=== PATIENT | male | born 1955 | race African-American/Black ===

== ENCOUNTER 2021-02-12 11:17 | Emergency (ER) | payer BC, OTHER ==
[~2021-02-12] VITALS: Ht 182.9 cm; Wt 83.9 kg
[~2021-02-12 11:17] MED LIST: ATEN-41 PO; VERA240C2 PO
[2021-02-12 11:41] VITALS: BP_SYST 138
--- NOTE | 2021-02-12 18:36 | NUR ---
Patient to ER bed 7 to gown for evaluation. Side rails up. Report given to Shahram CHIANG.
--- NOTE | 2021-02-12 18:40 | NUR ---
PT RETURNED PLACED IN ROOM 7 US OF LOWER EXT WAITING
--- NOTE | 2021-02-12 19:10 | NUR ---
report to august rn
--- NOTE | 2021-02-12 19:15 | NUR ---
Dr. Alvarez at bedside for explain results and treatment plans.
[2021-02-12 19:18] VITALS: BP_SYST 134
--- NOTE | 2021-02-12 19:18 | NUR ---
Patient given written and verbal discharge instructions and verbalizes understanding. ER MD discussed with patient the results and treatment provided. Patient in stable condition. ID arm band removed. No Rx given. Patient educated on pain management and to follow up with PMD. Pain Scale 0/10. Opportunity for questions provided and answered.
== END 2021-02-12 19:18 | disposition home or self-care (01) ==
LOC: SED 11:17
DX: R25.2 Cramp and spasm (principal); I10 Essential (primary) hypertension; E11.9 Type 2 diabetes mellitus without complications; E78.00 Pure hypercholesterolemia, unspecified; Z79.899 Other long term (current) drug therapy
CPT/HCPCS: 93923; 93970; 99285

== ENCOUNTER 2021-09-04 23:53 | Emergency (ER) | payer BC ==
[~2021-09-04] VITALS: Ht 182.9 cm; Wt 90.7 kg
[2021-09-05 00:36] VITALS: BP_SYST 151
[2021-09-05] MEDS ORDERED: METO-442 PO (00:56)
[2021-09-05] MEDS ORDERED: NOR10 PO (00:57)
[2021-09-05] MEDS ORDERED: LOSA50TA3 PO (00:58)
[2021-09-05] MEDS ORDERED: TAMS0.4C96 PO (00:59)
[2021-09-05] MEDS ORDERED: cloNIDine HCL 0.1 MG TABLET PO ONE ×2 (01:00→02:15)
[2021-09-05 01:49] LABS: BILIRUBIN,URINE NEGATIVE (NEGATIVE); BLOOD, URINE NEGATIVE (NEGATIVE); CLARITY/URINE CLEAR (CLEAR); COLOR,URINE YELLOW (YELLOW); GLUCOSE,URINE NEGATIVE (NEGATIVE); KETONES,URINE NEGATIVE (NEGATIVE); LEUKOCYTE ESTERASE ,URINE NEGATIVE (NEGATIVE); NITRITE, URINE NEGATIVE (NEGATIVE); PROTEIN URINE NEGATIVE (NEGATIVE); UROBILINOGEN,URINE 0.2 (0.2-1.0)
[2021-09-05 03:35] VITALS: BP_SYST 120
== END 2021-09-05 03:35 | disposition home or self-care (01) ==
LOC: SED 23:53
DX: I10 Essential (primary) hypertension (principal); E11.9 Type 2 diabetes mellitus without complications; E78.00 Pure hypercholesterolemia, unspecified
CPT/HCPCS: 81003; 99283; 99285

== ENCOUNTER 2022-02-17 08:51 | Observation (INO) | payer BC, OTHER ==
[~2022-02-17] VITALS: Ht 182.9 cm; Wt 78.0 kg
[~2022-02-17 08:51] MED LIST changes: -ATEN-41 PO; +LOSA50TA3 PO; +METO-442 PO; +NOR10 PO; +TAMS0.4C96 PO; -VERA240C2 PO
--- NOTE | 2022-02-17 09:00 | NUR ---
Placed in room 03 . Placed on bacteriologist industrial, blood pressure machine and pulse oximeter. To gown for exam. Side rails up. Report given to АНДРЕЙ ESCOBAR.
[2022-02-17 09:03] VITALS: BP_SYST 181
--- NOTE | 2022-02-17 09:20 | NUR ---
JENNY Chacon at bedside examining patient.
[2022-02-17 09:34] LABS: BASOPHILS % (AUTO) 0.3 % (0.0-2.0); EOSINOPHILS % (AUTO) 0.2 % (0.0-4.0); HEMOGLOBIN 13.6 g/dL (14.0-18.0); LYMPHOCYTES # (AUTO) 0.6 K/uL (1.0-5.5); MEAN CORPUSCULAR HEMOGLOBIN 26 pg (27-31); MEAN CORPUSCULAR HGB CONC 33 % (32-36); MEAN CORPUSCULAR VOLUME 78 fL (79.0-98.0); MONOCYTES # (AUTO) 0.5 K/uL (0.0-1.0); MONOCYTES % (AUTO) 7.2 % (1.7-9.3); NEUTROPHILS # (AUTO) 5.8 K/uL (1.8-7.7); NEUTROPHILS % (AUTO) 83.3 % (40.0-70.0); PLATELET COUNT (AUTO) 302 K/uL (130-430); RED BLOOD CELL COUNT(AUTO) 5.24 MIL/uL (4.2-6.2)
--- NOTE | 2022-02-17 09:35 | NUR ---
PT LYING ON BED WITH CO LEFT EYE PAIN WITH STEPHENSON. BP HAS BEEN HIGH SINCE LAST NIGHT. NO FURHTER CO. PT WAS ON MONITOR.
[2022-02-17 09:54] LABS: ANION GAP 2 (5-15); CALCIUM 9.2 mg/dL (8.4-11.0); CHLORIDE 100 mmol/L (98-107); CREATININE 1.01 mg/dL (0.55-1.30); GLUCOSE 157 mg/dL (70-99); UREA NITROGEN, BLOOD 10 mg/dL (8-21)
[2022-02-17 10:03] LABS: ALANINE AMINOTRANSFERASE 22 U/L (12-78); ALBUMIN 3.5 g/dL (3.4-4.8); ASPARTATE AMINOTRANSFERASE 37 U/L (10-37); TOTAL BILIRUBIN 0.4 mg/dL (0.0-1.0)
[2022-02-17 10:14] LABS: GFR AFRICAN AMERICAN 95 mL/min (>90)
--- NOTE | 2022-02-17 10:31 | NUR ---
Admit bed requested Patient will be admitted to care of . Admitted to [facility] OBS unit. Diagnosis ELEVATED TROP. Inpatient: NO Observation (Yes Orientation concerns or request close to nursing station (No) Covid Status:Neg On vent or bipap: No. Isolation requirements: STANDARD Needs a sitter: NO. From Home (Yes) Requires Dialysis (No) Med Rec Completed (Yes)
[2022-02-17] MEDS ORDERED: [UNRECOGNIZED DRUG - CODE] PO (11:16)
[2022-02-17] MEDS ORDERED: ZOLP1.754 SL (11:16)
--- NOTE | 2022-02-17 12:19 | NUR ---
PT GOT ROOM 110B. PT WAS SENT TO [facility] WITH DIMITRI.
--- NOTE | 2022-02-17 12:19 | NUR ---
Report received from АНДРЕЙ Mc for continuity of care. Patient respiration even and unlabored. No shortness of breath. No c/o pain. Patient explained he came to hospital for elevated BP. Patient denies losing consciousness when he fell at home yesterday. Patient is responsive to verbal commands. IV noted. Patient belongings listed and at bedside. Patient's at bedside to see her. Will continue to monitor. [facility] notified regarding elevated troponin and blood pressure. Will continue to monitor. Call light within reach.
--- NOTE | 2022-02-17 12:26 | NUR ---
Note undone in EDM - 02/17/22 at 1230 by [email or web address]AY[address] DR[address] SAGASTUME RE-ASSESSED BEDSIDE THEN DECIDED TO D/C PT HOME. Patient given written and verbal discharge instructions and verbalizes understanding. ER MD discussed with patient the results and treatment provided. Patient in stable condition. ID arm band removed. Rx of EPINEPHRINE AND PREDNISONE given. Patient educated on pain management and to follow up with PMD. Pain Scale 1. Opportunity for questions provided and answered. Medication side effect fact sheet provided.
--- NOTE | 2022-02-17 12:36 | NUR ---
CONSULTATION PAGED REASON FOR CONSULTATION:ELEVATED TROPONIN WAS CONSULT CALLED?Y PERSON WHO WAS NOTIFIED:TEXT MESSAGED CONSULTING PHYSICIAN:BRUCE PEMBERTON PARTNER [employer]ATION [employer]NER SPECIALTY:CARDIO PARTNER INTEGRATION PLANNER PHONE NUMBER:[phone] REQUESTING PHYSICIAN:ROSELYN PEMBERTON Addendum: 02/17/22 at 1257 by Gerda Montgomery MT/ [facility] [employer] MANAGER FOR DR CISNEROS
[2022-02-17 12:41] VITALS: BP_SYST 152
[2022-02-17 12:42] VITALS: BP_SYST 152
--- NOTE | 2022-02-17 13:54 | NUR ---
Reported to Dr. Warren lab results and reonciled meds. New orders noted and carried out.
[2022-02-17] MEDS ORDERED: TAMSULOSIN HCL 0.4 MG CAP PO ONE (14:00)
[2022-02-17] MEDS ORDERED: amLODIPine BESYLATE 10 MG TABLET PO ONE (14:00)
[2022-02-17] MEDS ORDERED: METOPROLOL TARTRATE 50 MG TABLET PO ONE ×2 (14:00→14:15)
[2022-02-17] MEDS ORDERED: POTASSIUM CHLORIDE 20 MEQ TAB.PRT.SR PO ONE (14:00)
[2022-02-17] MEDS ORDERED: LOSARTAN POTASSIUM 50 MG TABLET (COZAAR) PO ONE ×2 (14:00→15:15)
--- NOTE | 2022-02-17 14:10 | NUR ---
Echo in progress.
[2022-02-17] MEDS ORDERED: HYDROCHLOROTHIAZIDE 12.5 MG CAPSULE (HCTZ) PO ONE (15:00)
[2022-02-17] MEDS ORDERED: VALSARTAN 160 MG TABLET (DIOVAN) PO SCH (15:00)
[2022-02-17 16:00] VITALS: BP_SYST 148
[2022-02-17 19:00] VITALS: BP_SYST 149
--- NOTE | 2022-02-17 19:15 | NUR ---
change of shift.pt.presents quiescent affect;calm,resting.no c/o pain;chest/nor chest discomfort.respiratory status stable @roomn air.pt.capable to ambulate;un-assisted,reposition self.pt.presents iv access aloatio .lt fprarm.gene;tsus stale.calight/telepo w/i acces sof thpt./
--- NOTE | 2022-02-17 19:30 | NUR ---
Report given to land clearer RN for continuity of care. Patient stable condition. No distress noted.
[2022-02-17] MEDS ORDERED: HYDROcodone/ACETAMIN 10-325 MG TAB PO PRN (19:45)
[2022-02-17] MEDS ORDERED: HYDROcodone/ACETAMIN 5-325 MG TAB (NORCO/ VICODIN) PO PRN (19:45)
[2022-02-17] MEDS ORDERED: ACETAMINOPHEN 325 MG TABLET PO PRN (19:45)
[2022-02-17] MEDS ORDERED: NALOXONE HCL 0.4 MG/ML AMP (NARCAN) IVP PRN ×2 (19:45)
[2022-02-17] MEDS ORDERED: ONDANSETRON HCL 4 MG/2 ML VIAL IVP PRN (19:45)
[2022-02-17 20:00] VITALS: BP_SYST 149
--- NOTE | 2022-02-17 20:00 | NUR ---
pt.assessed.v/s assessed value wnl:note b/p status.b/p status conveyed to pt.pre pt.request.no c/o pain;chest/nor chest discomfort.pt.apprised that snacks/beverages are available w/in the shift.pt.posited requests snacks/beverages;provided. general status stable.respiratory status stable.call light/telephone w/in access of the pt.
[2022-02-17] MEDS ORDERED: METOPROLOL TARTRATE 50 MG TABLET PO SCH (21:00)
[2022-02-17] MEDS ORDERED: TAMSULOSIN HCL 0.4 MG CAP PO SCH (21:00)
[2022-02-17] MEDS ORDERED: ZOLPIDEM TARTRATE 5 MG TABLET PO SCH (21:00)
--- NOTE | 2022-02-17 21:00 | NUR ---
2100p medication administered;flomax.pt.capable to ingest the po medication w/out difficulty.no c/o pain,nausea. call light/telephone w/in access of the pt.
[2022-02-17] MEDS: NORMAL SALINE 5 ML DISP.SYRIN IVF SCH ×2 (21:43→21:44)
--- NOTE | 2022-02-17 22:00 | NUR ---
pt.assessed.pt.quiescent,resting.no c/o pain,nausea.no requests posited@this hour.call light/telephone w/in access of the pt.
[2022-02-18] VITALS: BP_SYST 133
--- NOTE | 2022-02-18 | NUR ---
pt.assessed.v/s assessed values wnl values conveyed to pt.troponin level decreased to 57:level conveyed to pt.no c/o pain, nausea.pt.requested ambien;5mg po administered.no requests posited@this hour.pt.capable to reposition self.call light/telephone w/in access of the pt.
--- NOTE | 2022-02-18 02:00 | NUR ---
pt.assessed.pt.quiescent;somnolent.per flacc pain mgx pt.absent facial grimaces/body posturing.pt.capable to reposition self. call light/telephone w/in access of the pt.
--- NOTE | 2022-02-18 04:00 | NUR ---
pt.assessed.pt.quiescent;resting.no c/o pain,nausea.no requests posited@this hour.pt.capable to reposition self. call light/telephone w/in access of the pt.
[2022-02-18] MEDS: NORMAL SALINE 5 ML DISP.SYRIN IVF SCH ×4 (05:04→11:09)
--- NOTE | 2022-02-18 06:07 | NUR ---
pt.assessed.pt.quiescent;somnolent.per flacc pain mgx pt.absent facial grimaces/body posturing.pt.capable to reposition/ self.call light/telephone w/in access of the pt.
[2022-02-18 07:15] LABS: CALCIUM 9.1 mg/dL (8.4-11.0); CREATININE 1.06 mg/dL (0.55-1.30); PHOSPHORUS 3.3 mg/dL (2.7-4.5)
[2022-02-18 07:55] LABS: BASOPHILS % (AUTO) 0.6 % (0.0-2.0); EOSINOPHILS # (AUTO) 0.1 K/uL (0.0-0.4); EOSINOPHILS % (AUTO) 1.2 % (0.0-4.0); HEMATOCRIT 41.9 % (36-54); HEMOGLOBIN 13.9 g/dL (14.0-18.0); LYMPHOCYTES # (AUTO) 1.2 K/uL (1.0-5.5); LYMPHOCYTES % (AUTO) 22.7 % (20.5-51.5); MEAN CORPUSCULAR HEMOGLOBIN 26 pg (27-31); MEAN CORPUSCULAR HGB CONC 33 % (32-36); MEAN CORPUSCULAR VOLUME 79 fL (79.0-98.0); MONOCYTES # (AUTO) 0.5 K/uL (0.0-1.0); MONOCYTES % (AUTO) 10.1 % (1.7-9.3); NEUTROPHILS # (AUTO) 3.4 K/uL (1.8-7.7); NEUTROPHILS % (AUTO) 65.4 % (40.0-70.0); PLATELET COUNT (AUTO) 318 K/uL (130-430); RED BLOOD CELL COUNT(AUTO) 5.33 MIL/uL (4.2-6.2); RED CELL DISTRIBUTION WIDTH 15.2 % (9.0-15.0); WHITE BLOOD COUNT (AUTO) 5.2 K/uL (4.8-10.8)
[2022-02-18 08:01] VITALS: BP_SYST 124
[2022-02-18] MEDS ORDERED: LOSARTAN POTASSIUM 50 MG TABLET (COZAAR) PO SCH ×2 (09:00)
[2022-02-18] MEDS ORDERED: TAMSULOSIN HCL 0.4 MG CAP PO SCH (09:00)
[2022-02-18] MEDS ORDERED: amLODIPine BESYLATE 10 MG TABLET PO SCH (09:00)
[2022-02-18] MEDS ORDERED: METOPROLOL TARTRATE 50 MG TABLET PO SCH (09:00)
[2022-02-18] MEDS ORDERED: HYDROCHLOROTHIAZIDE 12.5 MG CAPSULE (HCTZ) PO SCH (09:00)
--- NOTE | 2022-02-18 10:44 | NUR ---
Call placed to Dr. Mendy Warren regarding patient complaint of bilateral eye swelling "from fall" according to patient. Awaiting further direction/orders.
[2022-02-18] MEDS ORDERED: METOPROLOL SUCCINATE 50 MG TAB.SR.24H (TOPROL XL) PO ONE (11:30)
[2022-02-18] MEDS ORDERED: HYDR12.585 PO (11:42)
[2022-02-18] MEDS ORDERED: ZOLP5TAB2 PO (11:42)
[2022-02-18] MEDS ORDERED: LOSA50TA3 PO (11:42)
[2022-02-18] MEDS ORDERED: METO-542 PO (11:42)
[2022-02-18 11:45] VITALS: BP_SYST 123
[2022-02-18 12:00] VITALS: BP_SYST 135
[2022-02-18] MEDS ORDERED: METOPROLOL SUCCINATE 50 MG TAB.SR.24H (TOPROL XL) PO SCH ×2 (12:05→21:00)
[2022-02-18 12:41] VITALS: BP_SYST 124
--- NOTE | 2022-02-18 13:12 | NUR ---
Patient spoke with [facility] regarding discharge and stress test. Patient wants to be "checked out fully" prior to being discharged. Patient wanting to stay in hospital to get stress test done. Spoke with Dr. Juana Warren, cardiology, regarding situation for further direction. Patient to be discharged under physician guidance with follow up on outpatient referral.
--- NOTE | 2022-02-18 13:33 | NUR ---
Patient agreeable to discharge. All paperwork and education medication provided. Patient ambulatory with steady gait to wheelchair. No distress noted. assisted with belongings and patient wheelchaired to personal vehicle.
== END 2022-02-18 13:35 | disposition home or self-care (01) ==
LOC: SED 08:51 → STU 11:44
PROVIDERS: ADMIT Preventive Medicine Preventive Medicine/Occupational Environmental Medicine; ATTEND Preventive Medicine Preventive Medicine/Occupational Environmental Medicine
DX: I10 Essential (primary) hypertension (principal); I16.1 Hypertensive emergency; S09.90XA Unspecified injury of head, initial encounter; E78.5 Hyperlipidemia, unspecified; I25.10 Atherosclerotic heart disease of native coronary artery without angina pectoris; E11.9 Type 2 diabetes mellitus without complications; N40.0 Benign prostatic hyperplasia without lower urinary tract symptoms; W19.XXXA Unspecified fall, initial encounter; Y93.89 Activity, other specified; Y92.89 Other specified places as the place of occurrence of the external cause; Z79.899 Other long term (current) drug therapy
CPT/HCPCS: 80053; 83880; 85025 ×2; 84484 ×2; 36415 ×2; 93005 ×2; 93306; 71045; 70450; 76376; 99285; 87426; 80048; 83735; 84100; G0378 ×2

== ENCOUNTER 2023-09-18 10:11 | Emergency (ER) | payer MEDICARE, OTHER ==
[~2023-09-18] VITALS: Ht 180.3 cm; Wt 90.7 kg
[~2023-09-18 10:11] MED LIST changes: +HYDR12.585 PO; +LOSA-413 PO; -LOSA50TA3 PO; +METO-306 PO; -METO-442 PO; +ZOLP5TAB2 PO; +[UNRECOGNIZED DRUG - CODE] PO
[2023-09-18 10:19] VITALS: BP_SYST 161; PULSE 73; RESP 20; TEMP 98.3; O2SAT 98
[2023-09-18] MEDS: cloNIDine HCL 0.1 MG TABLET PO ONE (10:47)
[2023-09-18 11:00] LABS: BILIRUBIN,URINE NEGATIVE (NEGATIVE); CLARITY/URINE CLEAR (CLEAR); COLOR,URINE YELLOW (YELLOW); GLUCOSE,URINE NEGATIVE (NEGATIVE); KETONES,URINE NEGATIVE (NEGATIVE); LEUKOCYTE ESTERASE ,URINE NEGATIVE (NEGATIVE); NITRITE, URINE NEGATIVE (NEGATIVE); PROTEIN URINE NEGATIVE (NEGATIVE); UROBILINOGEN,URINE 0.2 (0.2-1.0)
[2023-09-18 11:23] LABS: BLOOD, URINE TRACE (NEGATIVE)
[2023-09-18 11:25] LABS: BACTERIA,URINE None Seen /HPF (None Seen); RBC,URINE 0-3 /HPF (0-3); WBC,URINE NONE SEEN /HPF (0-3)
[2023-09-18 11:28] VITALS: BP_SYST 155; PULSE 69; O2SAT 97
[2023-09-18] MEDS ORDERED: NITR-85 PO (11:35)
== END 2023-09-18 15:01 | disposition home or self-care (01) ==
LOC: SED 10:11
DX: I16.0 Hypertensive urgency (principal); N32.81 Overactive bladder; E78.5 Hyperlipidemia, unspecified; E11.9 Type 2 diabetes mellitus without complications; I10 Essential (primary) hypertension; Z79.899 Other long term (current) drug therapy; Z79.2 Long term (current) use of antibiotics
CPT/HCPCS: 81000; 81001; 81015; 99283